=== PATIENT | female | born 1995 | race Caucasian/White ===

== ENCOUNTER 2020-05-15 13:43 | Outpatient (REF) | payer MEDICAID, SELFPAY | END 2020-05-15 13:44 | disposition home or self-care (01) | LOC: HO.LAB 13:43 | PROVIDERS: Visit Provider Internal Medicine | DX: Z20.828 Contact with and (suspected) exposure to other viral communicable diseases (principal) | CPT/HCPCS: 36415; 87635 ==

== ENCOUNTER 2020-05-29 12:17 | Outpatient (REF) | payer MEDICAID, SELFPAY | END 2020-05-29 12:18 | disposition home or self-care (01) | LOC: HO.LAB 12:17 | PROVIDERS: Visit Provider Internal Medicine | DX: Z20.828 Contact with and (suspected) exposure to other viral communicable diseases (principal) | CPT/HCPCS: 87635 ==

== ENCOUNTER 2020-06-24 06:11 | Emergency (ER) | payer MEDICAID, SELFPAY ==
[2020-06-24 06:22] VITALS: BP 114/96; PULSE 89; RESP 20; TEMP 37; O2SAT 99; BMI 27.3
--- NOTE | 2020-06-24 06:27 | ECG_ITS ---
Test Reason : CHEST PAIN Blood Pressure : / mmHG Vent. Rate : 067 BPM Atrial Rate : 067 BPM P-R Int : 114 ms QRS Dur : 088 ms QT Int : 400 ms P-R-T Axes : 032 056 037 degrees QTc Int : 422 ms Normal sinus rhythm Normal ECG When compared with ECG of 02-DEC-2018 13:58, No significant change was found Referred By: Cecilia Moore Electronically Signed By:BONNY COTTO MD
[2020-06-24 06:41] LABS: MANUAL DIFF FLAG NO
[2020-06-24 06:42] LABS: Basophils Absolute Auto 0.1 X10*3/uL (0.0-0.2); Basophils Percent Auto 0.3 % (0-2); Eosinophils Percent Auto 0.1 % (0-4); Hematocrit 40.3 % (37-47); Hemoglobin 13.1 g/dl (12.0-16.0); Imm Gran Abs Auto 0.04 X10*3/uL (0.00-0.03); Imm Gran Pct Auto 0.3 % (0.0-0.4); Lymphocytes Absolute Auto 1.2 X10*3/uL (1.2-4.9); Lymphocytes Percent Auto 8.2 % (20-40); Mean Corpuscular HGB Conc 32.5 g/dl (31.0-35.0); Mean Corpuscular Hemoglobin 27.8 pg (27.0-33.0); Mean Corpuscular Volume 85.6 fL (80-98); Mean Platelet Volume 10.7 fL (9.4-12.3); Monocytes Absolute Auto 0.3 X10*3/uL (0.1-1.2); Monocytes Percent Auto 1.7 % (2-11); Neutrophils Absolute Auto 12.8 X10*3/uL (2.0-8.3); Neutrophils Percent Auto 89.4 % (45-73); Platelet Count 256 X10*3/uL (160-400); Red Blood Count 4.71 X10*6/uL (4.20-5.50); Red Cell Distribution Width 12.7 % (11.0-16.0); White Blood Count 14.3 X10*3/uL (4.8-10.8)
[2020-06-24] MEDS: 0.9 % Sodium Chloride 1,000 ML 999 ML IVCONT (06:47)
[2020-06-24] MEDS: ondansetron HCL 4 MG/2 ML VIAL IVPUSH ×2 (06:47→10:59)
--- NOTE | 2020-06-24 07:00 | XR_ITS ---
EXAMINATION: XR CHEST CLINICAL INFORMATION: Chest pain COMPARISON: Chest x-ray 06/30/2014 TECHNIQUE: Frontal view of the chest was obtained. FINDINGS: Cardiac silhouette is normal in size. Lungs are well aerated. There is no lobar consolidation. No pleural effusion or pneumothorax. No gross osseous abnormality. XR/XR chest 1V IMPRESSION: Stable examination demonstrating no acute pulmonary pathology.
--- NOTE | 2020-06-24 07:05 | ED_ITS ---
HPI - Chest Pain General Chief Complaint: Chest Pain Stated Complaint: Chest pain Time Seen by Provider: 06/24/20 06:56 Source: patient Mode of arrival: ambulatory Limitations: no limitations History of Present Illness HPI narrative: This is a 24-year-old female presented with chest pain started at 02:00 in the morning pain woke the patient up from sleep, patient described pain as sharp pain in her mid chest to her upper back, pain is constant since 02:00, no radiation of the pain, nothing makes the pain worse or relieve the pain, pain is associated with nausea and vomiting. Patient last meal was before went to bed last night greasy chicken sandwich. Related Data Previous Rx's Medication Instructions Recorded omeprazole magnesium [Prilosec OTC] 20 mg PO BID #30 tab 06/24/20 Allergies Allergy/AdvReac Type Severity Reaction Status Date / Time No Known Allergies Allergy Verified 06/24/20 06:21 Review of Systems Review of Systems: All other systems are reviewed and are negative Constitutional: Reports as per HPI and Reports no additional constitutional complaints Eyes: Reports as per HPI and Reports no additional eye complaints Reports system reviewed and no additional complaints, except as documented Cardiovascular: Reports as per HPI and Reports no additional cardiovascular complaints Respiratory: Reports as per HPI and Reports no additional respiratory complaints Gastrointestinal: Reports as per HPI and Reports no additional gastrointestinal complaints Genitourinary: Reports no additional female genitourinary complaints Musculoskeletal: Reports no additional musculoskeletal complaints Skin/Breast: Reports system reviewed and no additional complaints, except as docu Psychiatric: Reports no additional psychiatric complaints Endocrine: Reports no additional endocrine complaints Hematologic/Lymphatic: Reports no additional hematologic/lymphatic complaints Allergic/Immunologic: Reports no additional allergic/immunologic complaints Reports system reviewed and no additional complaints, except as documented and Reports Abnormal speech present [facility] Past Medical History Medical History COVID-19 Social History Social History Alcohol intake: never Smoked in Last 30 Days: No Use of substances other than those prescribed or required for medical reasons: No Advance Directives: No Advance Directives Information Provided: No Physical Exam Vital Signs: Vital Signs: Last Vital Signs Temp 98.6 F 06/24/20 06:22 Pulse 89 06/24/20 06:22 Resp 20 06/24/20 06:22 BP 114/96 H 06/24/20 06:22 Pulse Ox 99 06/24/20 06:22 Body Mass Index 27.3 Vital signs have been reviewed as normal and appeared to be correct. Blood pressure normal. Heart rate normal. Respiration rate normal. Temperature normal. Oxygen saturation normal. Appearance: Alert. Oriented X3. No acute distress. Head: Normal external exam. Normocephalic. Atraumatic. No Macias signs noted. No raccoon eyes noted Eyes: PERRLA. EOMI. Conjunctiva and sclera normal. Eyelids normal. ENT: EAC normal. TM's Normal. Pharynx normal. Uvula midline. Moist mucous membranes. No trismus noted. No drooling noted. No muffled voice noted. Neck: Normal inspection. Neck supple. FROM. No adenopathy. Thyroid Normal. No meningeal signs. No neck mass noted. CVS: Normal heart rate and rhythm. Heart sound normal. No murmurs noted. Pulses normal throughout. Respiratory: No respiratory distress. Painless inspiration. Breath sounds normal. No wheezes/rales/rhonchi noted. Chest nontender. No accessory muscle usage noted or decreased air movement noted. Abdomen: Soft, right upper quadrant tenderness with no rebound or guarding, positive Rodríguez's sign.. Bowel sounds normal in all 4 quadrants. No distention noted. No organomegaly noted. No visible injury noted. Back: No CVA tenderness. Full range of motion noted. Skin: Skin warm and dry. Normal skin color. Normal skin turgor. No rashes/lesions/lacerations noted. Extremities: No lower extremity edema. Extremities exhibit normal range of motion. Extremities nontender. Neuro: Oriented X 3. No motor deficit. No sensory deficit. Reflexes normal. Course Course Course Narrative: this is 24 yr old female presented with upper abd/ lower chest pain since 2 am, exam is consistent with GB problem, will consider labs and ultrasound. MDM - Chest Pain MDM Narrative Medical decision making narrative: Assessment and plan. 24-year-old female presented with nausea vomiting upper abdominal pain, patient ate greasy chicken which she has last night then symptoms started shortly after that, patient has unremarkable gallbladder ultrasound, unremarkable chest x-ray, Labs are significant for leukocytosis and elevation of LFTs. Patient was reassessed and feeling better now, patient stop nausea and vomiting, able to tolerate p.o. intake in the emergency department without vomiting. Lab Data Attestation: I reviewed the patient's lab results. Result diagrams: 06/24/20 06:36 06/24/20 06:36 Labs: Lab Results 06/24/20 06/24/20 06/24/20 Range/Units 06:36 06:36 06:36 WBC 14.3 H (4.8-10.8) X10*3/uL RBC 4.71 (4.20-5.50) X10*6/uL Hgb 13.1 (12.0-16.0) g/dl Hct 40.3 (37-47) % MCV 85.6 (80-98) fL MCH 27.8 (27.0-33.0) pg MCHC 32.5 (31.0-35.0) g/dl RDW 12.7 (11.0-16.0) % Plt Count 256 (160-400) X10*3/uL MPV 10.7 (9.4-12.3) fL Immature Gran % (Auto) 0.3 (0.0-0.4) % Neut % (Auto) 89.4 H (45-73) % Lymph % (Auto) 8.2 L (20-40) % [place] % (Auto) 1.7 L (2-11) % Eos % (Auto) 0.1 (0-4) % Baso % (Auto) 0.3 (0-2) % Lymph # (Auto) 1.2 (1.2-4.9) X10*3/uL [place] # (Auto) 0.3 (0.1-1.2) X10*3/uL Eos # (Auto) 0.0 (0.0-0.4) X10*3/uL Baso # (Auto) 0.1 (0.0-0.2) X10*3/uL Abs Immat Gran (auto) 0.04 H (0.00-0.03) X10*3/uL Absolute Neuts (auto) 12.8 H (2.0-8.3) X10*3/uL Absolute Nucleated RBC 0.000 (0.0-0.012) X10*3/uL Nucleated RBC % (auto) 0.0 (0.0-0.2) /100WBC D-Dimer < 200 NG/ML Hold Blue Top SEE NOTE Sodium 137 (135-145) mmol/L Potassium 4.1 (3.3-5.1) mmol/l Chloride 103 (96-108) mmol/L Carbon Dioxide 25 (22-29) mmol/L Anion Gap 13 (12-20) BUN 11 (9-16) mg/dL Creatinine 0.86 (0.5-1.4) mg/dL Estim Creat Clear Calc 82.5 Estimated GFR > 60 Random Glucose 121 H (60-115) mg/dL Calcium 9.0 (8.4-10.2) mg/dL Total Bilirubin 1.1 H (0.0-1.0) mg/dL Direct Bilirubin 0.6 H (0.0-0.5) mg/dL AST 64 H (5-31) U/L ALT 49 H (0-31) U/L Alkaline Phosphatase 83 (39-117) U/L Troponin I High Sens (<3.5-17.0) ng/L Total Protein 7.6 (6.5-8.0) g/dL Albumin 4.5 (3.5-5.0) g/dL Lipase 39 (8-78) U/L 06/24/20 06/24/20 Range/Units 06:36 06:36 WBC (4.8-10.8) X10*3/uL RBC (4.20-5.50) X10*6/uL Hgb (12.0-16.0) g/dl Hct (37-47) % MCV (80-98) fL MCH (27.0-33.0) pg MCHC (31.0-35.0) g/dl RDW (11.0-16.0) % Plt Count (160-400) X10*3/uL MPV (9.4-12.3) fL Immature Gran % (Auto) (0.0-0.4) % Neut % (Auto) (45-73) % Lymph % (Auto) (20-40) % [place] % (Auto) (2-11) % Eos % (Auto) (0-4) % Baso % (Auto) (0-2) % Lymph # (Auto) (1.2-4.9) X10*3/uL [place] # (Auto) (0.1-1.2) X10*3/uL Eos # (Auto) (0.0-0.4) X10*3/uL Baso # (Auto) (0.0-0.2) X10*3/uL Abs Immat Gran (auto) (0.00-0.03) X10*3/uL Absolute Neuts (auto) (2.0-8.3) X10*3/uL Absolute Nucleated RBC (0.0-0.012) X10*3/uL Nucleated RBC % (auto) (0.0-0.2) /100WBC D-Dimer NG/ML Hold Blue Top Sodium (135-145) mmol/L Potassium (3.3-5.1) mmol/l Chloride (96-108) mmol/L Carbon Dioxide (22-29) mmol/L Anion Gap (12-20) BUN (9-16) mg/dL Creatinine (0.5-1.4) mg/dL Estim Creat Clear Calc Estimated GFR Random Glucose (60-115) mg/dL Calcium (8.4-10.2) mg/dL Total Bilirubin Cancelled (0.0-1.0) mg/dL Direct Bilirubin Cancelled (0.0-0.5) mg/dL AST Cancelled (5-31) U/L ALT Cancelled (0-31) U/L Alkaline Phosphatase Cancelled (39-117) U/L Troponin I High Sens < 3.5 (<3.5-17.0) ng/L Total Protein Cancelled (6.5-8.0) g/dL Albumin Cancelled (3.5-5.0) g/dL Lipase Cancelled (8-78) U/L Imaging Data Chest x-ray: Radiologist's impression: No acute intrathoracic pathology. US - abdomen: Radiologist's impression: No acute gallbladder pathology. ECG Data ECG #1: Interpretation: Normal sinus rhythm at 67 beats per minute, normal axis, normal interval, no ST-T changes. Discharge Plan Discharge Clinical Impression: Abdominal pain, Gastritis Patient Disposition: Home, Self-Care Instructions: Gastritis (ED) Prescriptions: New omeprazole magnesium [Prilosec OTC] 20 mg tablet,delayed release (DR/EC) 20 mg PO BID Qty: 30 RF: 0 Referrals: Physician,Unknown [Primary Care Provider] - 2 days Shaheen Cox MD [Physician] - 2 days
[2020-06-24 07:09] LABS: Troponin-I High Sensitivity < 3.5 ng/L (<3.5-17.0)
[2020-06-24 07:10] LABS: Alanine Aminotransferase 49 U/L (0-31); Albumin Level 4.5 g/dL (3.5-5.0); Alkaline Phosphatase 83 U/L (39-117); Anion Gap 13 (12-20); Aspartate Amino Transferase 64 U/L (5-31); Bilirubin Total 1.1 mg/dL (0.0-1.0); Blood Urea Nitrogen 11 mg/dL (9-16); Carbon Dioxide 25 mmol/L (22-29); Chloride 103 mmol/L (96-108); Creatinine Clr Calc Pharmacy 82.5; Estimated Glomerular Filt Rate > 60; Glucose Random 121 mg/dL (60-115); Lipase 39 U/L (8-78); Potassium 4.1 mmol/l (3.3-5.1); Sodium 137 mmol/L (135-145); Total Protein 7.6 g/dL (6.5-8.0)
[2020-06-24 07:31] LABS: D Dimer < 200 NG/ML
[2020-06-24 07:35] LABS: Bilirubin Direct 0.6 mg/dL (0.0-0.5)
--- NOTE | 2020-06-24 07:45 | US_ITS ---
EXAMINATION: US ABDOMEN LIMITED CLINICAL INFORMATION: 24-year-old female patient with upper abdominal pain.. COMPARISON: None TECHNIQUE: Real-time imaging of the right upper quadrant abdominal viscera. FINDINGS: PANCREAS: Not examined. LIVER: Not examined. GALLBLADDER: Contracted, without evidence of stones, sludge, polyps, wall thickening, or pericholecystic fluid. COMMON BILE DUCT: Normal in caliber measuring 0.2 cm in diameter. RIGHT KIDNEY: Not examined. FREE FLUID: None. US/US abdomen limited IMPRESSION: Contracted gallbladder. No stones.
[2020-06-24 10:41] LABS: Glucose Urine UA NEG (NEG); Leukocyte Esterase Urine NEG (NEG); Nitrite Urine NEG (NEG); PH 6.5 (5.0-8.0); Specific Gravity - Urine 1.025 (1.005-1.025); Urine Blood NEG (NEG); Urine Ketones 15 MG/DL (NEG); Urine Protein NEG (NEG-TRACE)
[2020-06-24 10:43] LABS: Appearance Urine CLEAR; Color Urine YELLOW; UACC Culture Trigger NO; UPreg QC Valid YES; Urine Pregnancy NEGATIVE (NEGATIVE)
[2020-06-24] MEDS: Acetaminophen 325 MG TABLET 650 MG PO (10:59)
== END 2020-06-24 11:02 | disposition home or self-care (01) ==
PROVIDERS: Emergency Provider Emergency Medicine
DX: K29.70 Gastritis, unspecified, without bleeding (principal); R07.9 Chest pain, unspecified; R10.9 Unspecified abdominal pain; Z79.899 Other long term (current) drug therapy
CPT/HCPCS: 36415; 71045; 76705; 80053; 80076; 81003; 81025; 82248; 83690; 84484; 85025; 85379; 93005; 96361; 96374; 96375; 99284; J2405

== ENCOUNTER 2020-11-02 11:29 | Outpatient (REF) | payer MEDICAID, SELFPAY ==
--- NOTE | ~2020-11-02 | XR_ITS ---
EXAMINATION: XR ANKLE, RIGHT CLINICAL INFORMATION: Pain right ankle and foot. COMPARISON: None TECHNIQUE: AP, lateral, and mortise views of the right ankle. FINDINGS: There is no fracture or dislocation or destructive process. The subtalar joint is unremarkable. The retrocalcaneal recess is preserved. No tibiotalar joint narrowing. No visible osteochondral lesion talar dome. Base fifth metatarsal intact. XR/XR ankle RT min 3V IMPRESSION: No fracture or, destructive process, or arthropathy.
== END 2020-11-02 11:30 | disposition home or self-care (01) ==
LOC: HO.XRAY 11:29
PROVIDERS: PCP Family Medicine; Visit Provider General Practice
DX: M25.571 Pain in right ankle and joints of right foot (principal)
CPT/HCPCS: 73610

== ENCOUNTER 2020-11-21 13:49 | Emergency (ER) | payer MEDICAID, SELFPAY ==
[2020-11-21 14:06] VITALS: BP 116/79; PULSE 111; RESP 16; TEMP 36.6; O2SAT 99; BMI 31.2
--- NOTE | 2020-11-21 15:10 | ED.GENADULT ---
HPI - General Adult General Chief complaint: General Medical <Shady John NP - Last Filed: 11/21/20 17:15> Stated complaint: BODY ACHES QUEST REACTION TO COVID VACCINE <Shady John NP - Last Filed: 11/21/20 17:15> Time Seen by Provider: 11/21/20 15:10 <Shady John NP - Last Filed: 11/21/20 17:15> Source: patient <Shady John NP - Last Filed: 11/21/20 17:15> Mode of arrival: ambulatory <Shady John NP - Last Filed: 11/21/20 17:15> Limitations: no limitations <Shady John NP - Last Filed: 11/21/20 17:15> History of Present Illness HPI narrative: States she got her Perfecto and Perfecto COVID vaccination yesterday Today she had body aches all over starting to feel better Also had mild chills She denies any chest pain, shortness of breath, lower extremity pain or swelling States she became more concerned when she saw the national news of Perfecto Perfecto vaccination being on hold for increased risk for blood clots. She denies any personal or familial history of blood clots otherwise has been doing well <Shady John NP - Last Filed: 11/21/20 17:15> Related Data Home medications: Previous Rx's Medication Instructions Recorded omeprazole magnesium [Prilosec OTC] 20 mg PO BID #30 tab 06/24/20 <Shady John NP - Last Filed: 11/21/20 17:15> Allergies/adverse reactions: Allergies Allergy/AdvReac Type Severity Reaction Status Date / Time No Known Allergies Allergy Verified 06/24/20 06:21 <Shady John NP - Last Filed: 11/21/20 17:15> Review of Systems Review of Systems: Constitutional: No Weight loss, No Fever, + Chills, No Night Sweats, No Fatigue, No Malaise ENT/Mouth: No Hearing loss, No Ear Pain, No Nasal Congestion, No Sinus Pain, No Hoarseness, No sore throat, No Rhinorrhea, No Swallowing Difficulty Eyes: No Eye Pain, No Swelling, No Redness, No Foreign Body, No Discharge, No Vision Changes Cardiovascular: No Chest Pain, No SOB, No Dyspnea on Exertion, No Orthopnea, No Edema, No Palpitations Respiratory: No Cough, No Sputum, No Wheezing, No Smoke Exposure, No Dyspnea Gastrointestinal: No Nausea, No Vomiting, No Diarrhea, No Constipation, No abdominal Pain, No Hematochezia, No Melena Genitourinary: no irregular bleeding, No Dysuria, No Urinary Frequency, No Hematuria, No Urinary Incontinence, No Urgency, No Flank Pain, No Urinary Flow Changes, No Hesitancy Musculoskeletal: No joint pain, No Joint Swelling, positive myalgias Skin: No Skin Lesions, No rash Neuro: No Weakness, No Numbness, No Paresthesias, No Loss of Consciousness, No Dizziness, No Headache Psych: No Social Issues Heme/Lymph: No Bruising, No Bleeding,No Lymphadenopathy Endocrine: No Polyuria, No Polydipsia, No Temperature Intolerance <Shady John NP - Last Filed: 11/21/20 17:15> Yes all other systems are reviewed and are negative <Shady John NP - Last Filed: 11/21/20 17:15> [facility] Past Medical History Medical History: Medical History COVID-19 <Shady John NP - Last Filed: 11/21/20 17:15> Social History Social History: Social History Alcohol intake: never Advance Directives: No Advance Directives Information Provided: Yes <Shady John NP - Last Filed: 11/21/20 17:15> Physical Exam Vital Signs: Vital Signs: Last Vital Signs Temp 98.7 F 11/21/20 17:09 Pulse 85 11/21/20 17:09 Resp 14 11/21/20 17:09 BP 115/70 11/21/20 17:09 Pulse Ox 99 11/21/20 17:09 Body Mass Index 31.2 Reviewed <Shady John NP - Last Filed: 11/21/20 17:15> Vital Signs: Last Vital Signs Temp 98.7 F 11/21/20 17:09 Pulse 85 11/21/20 17:09 Resp 14 11/21/20 17:09 BP 115/70 11/21/20 17:09 Pulse Ox 99 11/21/20 17:09 Body Mass Index 31.2 <Kota Hills MD - Last Filed: 11/30/20 10:57> Const: General: cooperative and healthy appearing; No acute distress or intoxicated appearing <Shady John NP - Last Filed: 11/21/20 17:15> Nutritional Appearance: average body habitus <Shadyguido John NP - Last Filed: 11/21/20 17:15> Orientation/consciousness: patient oriented x3 <[facility] MARISA John - Last Filed: 11/21/20 17:15> HENMT: Head: Yes normal to inspection <[facility] MARISA John - Last Filed: 11/21/20 17:15> Ears: hearing grossly normal bilaterally <[facility] MARISA John - Last Filed: 11/21/20 17:15> Eyes: General: appearance normal, both eyes and all related structures <Shadyguido John NP - Last Filed: 11/21/20 17:15> Visual Quintero: normal visual quintero by confrontation <Shadyguido John NP - Last Filed: 11/21/20 17:15> Neck: Neck: Yes normal visual inspection, No positive Brudzinski's sign, No positive Kernig's sign and No tender <Shadyguido John NP - Last Filed: 11/21/20 17:15> Thyroid: Thyroid normal <[facility] MARISA John - Last Filed: 11/21/20 17:15> Chest: Chest palpation & inspection: normal inspection of the chest <Shady John NP - Last Filed: 11/21/20 17:15> Resp: Effort & Inspection: normal respiratory effort <[facility] MARISA John - Last Filed: 11/21/20 17:15> Auscultation: clear to auscultation bilaterally <Shady MARISA John - Last Filed: 11/21/20 17:15> Cardio: Jugular venous distension: no JVD <[facility] MARISA John - Last Filed: 11/21/20 17:15> Rhythm: regular rhythm <[facility] MARISA oJhn - Last Filed: 11/21/20 17:15> Heart sounds: S1 normal heart sound present and S2 normal heart sound present <[facility] MARISA John - Last Filed: 11/21/20 17:15> GI: Inspection: Yes normal to inspection <Shady Alvaro PROJECT MANAGEMENT CONSULTANT - Last Filed: 11/21/20 17:15> Palpation (GI): Soft to palpation <Shady John PROJECT MANAGEMENT CONSULTANT - Last Filed: 11/21/20 17:15> Percussion: Yes normal to percussion <[facility] John PROJECT MANAGEMENT CONSULTANT - Last Filed: 11/21/20 17:15> Auscultation: normal bowel sounds <Shady John, PROJECT MANAGEMENT CONSULTANT - Last Filed: 11/21/20 17:15> : General: Yes no CVA tenderness <[facility] John PROJECT MANAGEMENT CONSULTANT - Last Filed: 11/21/20 17:15> Back/Spine/Pelvis: Back: no CVA tenderness <Shady JohnMARISA - Last Filed: 11/21/20 17:15> Skin: General skin exam: no rashes or lesions noted <[facility] JohnMARISA chen - Last Filed: 11/21/20 17:15> Neuro: General: patient oriented x3 <Shady De GuzmanMARISA chen - Last Filed: 11/21/20 17:15> Extrem: Other: Negative Homans <Shady JohnMARISA chen - Last Filed: 11/21/20 17:15> General: Yes normal to inspection <Shady JohnMARISA - Last Filed: 11/21/20 17:15> Course Course Course Narrative: I have reviewed the chart <Kota Hills MD - Last Filed: 11/30/20 10:57> Reevaluation(s) Reevaluation #1: Mild side effects from COVID Perfecto and Perfecto vaccination no symptoms to suggest DVT/PE. VSs, NAD, no complaint of chest pain, shortness of breath, lower extremity pain or swelling. Homans negative. VSS, NAD. COVID test negative. Will discharge home with precaution return follow-up instructions. She feels comfortable with plan. Stable for discharge. <Shady De GuzmanMARISA chen - Last Filed: 11/21/20 17:15> Medical Decision Making Lab Data Labs: Lab Results 11/21/20 Range/Units 15:18 Coronavirus (PCR) NEGATIVE (Negative) Influenza Type A (PCR) NEGATIVE (Negative) Influenza Type B (PCR) NEGATIVE (Negative) RSV RNA Qual (PCR) NEGATIVE (Negative) <Shady John NP - Last Filed: 11/21/20 17:15> Lab Results 11/21/20 Range/Units 15:18 Coronavirus (PCR) NEGATIVE (Negative) Influenza Type A (PCR) NEGATIVE (Negative) Influenza Type B (PCR) NEGATIVE (Negative) RSV RNA Qual (PCR) NEGATIVE (Negative) <Kota Hills MD - Last Filed: 11/30/20 10:57> Discharge Plan Discharge Clinical Impression: Vaccination side effects <Shady John NP - Last Filed: 11/21/20 17:15> Patient Disposition: Home, Self-Care <Shady John NP - Last Filed: 11/21/20 17:15> Additional Instructions: Return if any chest pain, shortness of breath, lower extremity pain or swelling Your COVID/RSV/flu test was negative today Thank you <Shady John NP - Last Filed: 11/21/20 17:15> Prescriptions: No Action omeprazole magnesium [Prilosec OTC] 20 mg tablet,delayed release (DR/EC) 20 mg PO BID Qty: 30 RF: 0 <Shady John NP - Last Filed: 11/21/20 17:15> Referrals: [facility] [Primary Care Provider] - 2 days <Shady John NP - Last Filed: 11/21/20 17:15> Stand Alone Forms: Work/School Release <Shady John NP - Last Filed: 11/21/20 17:15> Interventions: ED Discharge Assessment Last Done: 11/21/20 17:48 <Shady John NP - Last Filed: 11/21/20 17:15> Discharge Date/Time: 11/21/20 17:50 <Shady John NP - Last Filed: 11/21/20 17:15>
[2020-11-21 16:07] LABS: Influenza A PCR NEGATIVE (Negative); Influenza B PCR NEGATIVE (Negative); Resp Syncy Virus RNA Qual PCR NEGATIVE (Negative); SARS COV2 PCR INHOUSE NEGATIVE (Negative)
[2020-11-21 17:09] VITALS: BP 115/70; PULSE 85; RESP 14; TEMP 37.1; O2SAT 99
== END 2020-11-21 17:50 | disposition home or self-care (01) ==
PROVIDERS: Nurse Practitioner Primary Care; Emergency Provider Emergency Medicine
DX: R68.83 Chills (without fever) (principal); M79.10 Myalgia, unspecified site; T50.B95A Adverse effect of other viral vaccines, initial encounter; Y92.019 Unspecified place in single-family (private) house as the place of occurrence of the external cause; Z20.822 Contact with and (suspected) exposure to COVID-19
CPT/HCPCS: 0241U; 36415; 99283

== ENCOUNTER 2022-08-18 13:07 | Emergency (ER) | payer MEDICAID, SELFPAY ==
[2022-08-18 13:20] VITALS: BP 116/72; PULSE 88; RESP 16; TEMP 36.6; O2SAT 98; BMI 31.6
--- NOTE | 2022-08-18 13:21 | ED_ITS ---
HPI - URI/Sore Throat General Chief Complaint: Upper Respiratory Symptoms <NELI Severino Last Filed: 08/18/22 13:23> Stated Complaint: quest strep throat <NELI Severino Last Filed: 08/18/22 13:23> Time Seen by Provider: 08/18/22 16:52 <NELI Severino Last Filed: 08/18/22 13:23> Source: patient <NELI Cedeno Last Filed: 08/18/22 18:48> Mode of arrival: ambulatory <NELI Cedeno Last Filed: 08/18/22 18:48> History of Present Illness HPI Narrative: 26-year-old female with no significant past medical history presenting to the ED complaining of subjective fever, chills, nasal congestion/ rhinorrhea and sore throat x2 days. Reports painful swelling. Denies ear pain, cough, SOB, CP, recent travel, sick contacts, difficulty swallowing, abdominal pain <NELI Cedeno Last Filed: 08/18/22 18:48> MD elicited complaint: sore throat, rhinorrhea and nasal congestion <NELI Cedeno Last Filed: 08/18/22 18:48> Onset (ago): day(s) <NELI Cedeno Last Filed: 08/18/22 18:48> Related Data Home Medications: Previous Rx's Medication Instructions Recorded omeprazole magnesium 20 mg 20 mg PO BID #30 tabs 06/24/20 tablet,delayed release (Prilosec OTC) amoxicillin 875 mg-potassium 1 tab PO BID 7 days #14 tabs 08/18/22 clavulanate 125 mg tablet <NELI Severino Last Filed: 08/18/22 13:23> Allergies/Adverse Reactions: Allergies Allergy/AdvReac Type Severity Reaction Status Date / Time No Known Allergies Allergy Verified 08/18/22 13:22 <NELI Severino Last Filed: 08/18/22 13:23> Review of Systems Review of Systems: Constitutional: +Subj Fever, No Chills ENT/Mouth: No Ear Pain, + Nasal Congestion, No Sinus Pain, No Hoarseness, + sore throat, + Rhinorrhea, No Swallowing Difficulty Cardiovascular: No Chest Pain, No SOB Respiratory: No Cough, No Sputum, No Wheezing Gastrointestinal: No Nausea, No Vomiting, No Diarrhea, No Constipation, No Abdominal pain Genitourinary: No Dysuria, No Urinary Frequency, No Hematuria, No Flank Pain Musculoskeletal: No joint pain, No Myalgias, No Joint Swelling Skin: No Skin Lesions, No rash Neuro: No Weakness, <NELI Cedeno - Last Filed: 08/18/22 18:48> Yes all other systems are reviewed and are negative <NELI Cedeno - Last Filed: 08/18/22 18:48> Constitutional: Constitutional: Reports as per HPI <NELI Cedeno - Last Filed: 08/18/22 18:48> [facility] Past Medical History Attestation statement: The following information was validated with the patient. <NELI Cedeno - Last Filed: 08/18/22 18:48> Medical History: Medical History COVID-19 <NELI Severino - Last Filed: 08/18/22 13:23> Social History Social History: Social History Alcohol intake: never Advance Directives: No Advance Directives Information Provided: Yes <NELI Severino - Last Filed: 08/18/22 13:23> Physical Exam Vital Signs: Vital Signs: Last Vital Signs Temp 97.2 F 08/18/22 16:45 Pulse 87 08/18/22 16:45 Resp 17 08/18/22 16:45 BP 114/72 08/18/22 16:45 Pulse Ox 100 08/18/22 16:45 O2 Del Method 08/18/22 16:45 BMI result Body Mass Index 31.6 <NELI Severino - Last Filed: 08/18/22 13:23> Vital Signs: Last Vital Signs Temp 97.2 F 08/18/22 16:45 Pulse 87 08/18/22 16:45 Resp 17 08/18/22 16:45 BP 114/72 08/18/22 16:45 Pulse Ox 100 08/18/22 16:45 O2 Del Method 08/18/22 16:45 BMI result Body Mass Index 31.6 <NELI Cedeno Last Filed: 08/18/22 18:48> Const: General: cooperative, healthy appearing, comfortable and no acute distress <NELI Cedeno Last Filed: 08/18/22 18:48> Orientation/consciousness: patient oriented x3 <NELI Cedeno Last Filed: 08/18/22 18:48> Limitations: no limitations <NELI Cedeno Last Filed: 08/18/22 18:48> HEENT: Head: Yes normal to inspection and Yes atraumatic <NELI Cedeno Last Filed: 08/18/22 18:48> Ears: hearing grossly normal bilaterally, external ears normal, TM's normal bilaterally and mastoids normal <NELI Cedeno - Last Filed: 08/18/22 18:48> General nose exam: Normal external nose present <NELI Cedeno - Last Filed: 08/18/22 18:48> Face and sinus: Yes normal facial exam <NELI Cedeno - Last Filed: 08/18/22 18:48> Throat: Yes uvula midline, Yes abnormal tonsil (+ bilateral tonsillar swelling and exudates) and No peritonsillar mass <NELI Cedeno - Last Filed: 08/18/22 18:48> Eyes: General: appearance normal, both eyes and all related structures <NELI Cedeno Last Filed: 08/18/22 18:48> EOM: EOMs intact bilaterally <NELI Cedeno Last Filed: 08/18/22 18:48> Neck: Neck: Yes normal visual inspection, Yes no lymphadenopathy, Yes no meningeal signs, Yes supple and No anterior neck swelling <NELI Cedeno - Last Filed: 08/18/22 18:48> Resp: Effort & Inspection: normal respiratory effort, not labored, no respiratory distress and no stridor <NELI Cedeno Last Filed: 08/18/22 18:48> Auscultation: clear to auscultation bilaterally, no crackles, no rales and no rhonchi <NELI Cedeno Last Filed: 08/18/22 18:48> Cardio: Rate: regular rate <NELI Cedeno - Last Filed: 08/18/22 18:48> Heart sounds: S1 normal heart sound present and S2 normal heart sound present <NELI Cedeno - Last Filed: 08/18/22 18:48> GI: Inspection: Yes normal to inspection <NELI Cedeno - Last Filed: 08/18/22 18:48> Palpation (GI): Soft to palpation, nontender, no guarding, not rigid and No hepatosplenomegaly present <NELI Cedeno - Last Filed: 08/18/22 18:48> Skin: Rashes: no rashes <NELI Cedeno - Last Filed: 08/18/22 18:48> Wounds: no wounds <NELI Cedeno - Last Filed: 08/18/22 18:48> Neuro: General: patient oriented x3, tone normal and no meningeal signs <NELI Cedeno - Last Filed: 08/18/22 18:48> Gait exam (Neuro): Normal gait present <NELI Cedeno - Last Filed: 08/18/22 18:48> Extrem: General: Yes normal to inspection <NELI Cedeno Last Filed: 08/18/22 18:48> Course Course Course Narrative: E-13:23pm 26yoF presenting to the ED c c/o Chills, sub fevers, body aches, sore throat and white spots on tonsil's since Friday worse today. Denies recent travel or sick contacts. Denies any measured fevers, nausea/vomiting, cough, sputum production, abdominal pain, diarrhea, rashes or any other symptoms complaints or concerns at this time. Requesting for strep swab. Plan: Will obtain COVID/RSV/flu and rapid strep. Patient will be sent back to the waiting room to be evaluated in [facility]. <NELI Severino - Last Filed: 08/18/22 13:23> E-13:23pm 26yoF presenting to the ED c c/o Chills, sub fevers, body aches, sore throat and white spots on tonsil's since Friday worse today. Denies recent travel or sick contacts. Denies any measured fevers, nausea/vomiting, cough, sputum production, abdominal pain, diarrhea, rashes or any other symptoms complaints or concerns at this time. Requesting for strep swab. Plan: Will obtain COVID/RSV/flu and rapid strep. Patient will be sent back to the waiting room to [place] [facility] [facility] [id number] mono spot negative Monospot negative > will discharge patient with Augmentin as clinically has strep pharyngitis and viral studies including Monospot are negative Results discussed with patient including worrisome signs and symptoms and strict return precautions, and when to return to the emergency department. They verbalized understanding and feel safe for discharge at this time. <NELI Cedeno - Last Filed: 08/18/22 18:48> Medications Administered Discontinued Medications Generic Name Dose Route Start Last Admin Trade Name Freq PRN Reason Stop Dose Admin Lidocaine HCl 5 ml 08/18/22 17:42 08/18/22 17:58 Lidocaine Hcl Viscous 2 % 15 Ml Solution MUCOUS MEM 08/18/22 17:43 5 ml ONCE ONE Administration <NELI Severino - Last Filed: 08/18/22 13:23> Medications Administered Discontinued Medications Generic Name Dose Route Start Last Admin Trade Name Freq PRN Reason Stop Dose Admin Lidocaine HCl 5 ml 08/18/22 17:42 08/18/22 17:58 Lidocaine Hcl Viscous 2 % 15 Ml Solution MUCOUS MEM 08/18/22 17:43 5 ml ONCE ONE Administration <NELI Cedeno - Last Filed: 08/18/22 18:48> Medical Decision Making Medical Decision Making MDM Narrative: 26-year-old female with no significant past medical history presenting to the ED complaining of subjective fever, chills, nasal congestion/ rhinorrhea and sore throat x2 days. on exam vital signs stable, NAD, nontoxic appearing, bilateral tonsillar swelling with exudates noted, talking in complete sentences, no respiratory distress. Concern for strep pharyngitis vs viral syndrome vs mononucleosis. low suspicion for pneumonia plan: COVID-19/influenza/ RSV testing, rapid strep, Monospot <NELI Cedeno - Last Filed: 08/18/22 18:48> Differential Diagnosis Differential Diagnoses: The differential diagnosis associated with the presentation includes ( as above) <NELI Cedeno - Last Filed: 08/18/22 18:48> Lab Data MDM Lab Attestation statement: I reviewed the patient's lab results. <NELI Cedeno - Last Filed: 08/18/22 18:48> Labs: Lab Results 08/18/22 08/18/22 08/18/22 Range/Units 15:39 15:39 17:03 Monoscreen Negative (Negative) Influenza Type A (PCR) NEGATIVE (Negative) Influenza Type B (PCR) NEGATIVE (Negative) RSV RNA Qual (PCR) NEGATIVE (Negative) SARS-CoV-2 RNA (RT-PCR) NEGATIVE (Negative) S. pyogenes GrpA KAYLEE Negative (Negative) <NELI Severino Last Filed: 08/18/22 13:23> Lab Results 08/18/22 08/18/22 08/18/22 Range/Units 15:39 15:39 17:03 Monoscreen Negative (Negative) Influenza Type A (PCR) NEGATIVE (Negative) Influenza Type B (PCR) NEGATIVE (Negative) RSV RNA Qual (PCR) NEGATIVE (Negative) SARS-CoV-2 RNA (RT-PCR) NEGATIVE (Negative) S. pyogenes GrpA KAYLEE Negative (Negative) <NELI Cedeno Last Filed: 08/18/22 18:48> External Record Review External record reviewed: Other ( prior ED record) <NELI Cedeno - Last Filed: 08/18/22 18:48> Prescription Management I considered prescription management with: Pain Medication, Antiviral and Antibiotic <NELI Cedeno Last Filed: 08/18/22 18:48> Discharge Plan Discharge Clinical Impression: Pharyngitis <NELI Severino Last Filed: 08/18/22 13:23> Patient Disposition: Home, Self-Care <NELI Severino Last Filed: 08/18/22 13:23> Instructions: Pharyngitis (ED) <NELI Severino Last Filed: 08/18/22 13:23> Additional Instructions: you tested negative for COVID-19, the flu, RSV, and her rapid strep was negative. Her Monospot was also negative Clinically it appears you have strep throat, Augmentin is an antibiotic please take as prescribed. Gargle with warm salt water at home. Take Tylenol and Motrin. Avoid sharing drinks, wash her hands, cover her mouth Follow-up with her doctor If symptoms persist or worsen return to the emergency department <NELI Severino - Last Filed: 08/18/22 13:23> Prescriptions: New amoxicillin-pot clavulanate 875-125 mg tablet 1 tab PO BID 7 Days Qty: 14 0RF No Action omeprazole magnesium [Prilosec OTC] 20 mg tablet,delayed release (DR/EC) 20 mg PO BID Qty: 30 0RF <NELI Severino - Last Filed: 08/18/22 13:23> Referrals: [facility] [Primary Care Provider] - 5 days <NELI Severino - Last Filed: 08/18/22 13:23> Stand Alone Forms: Work/School Release <NELI Severino - Last Filed: 08/18/22 13:23> Interventions: ED Discharge Assessment Last Done: 08/18/22 18:02 <NELI Severino - Last Filed: 08/18/22 13:23> Discharge Date/Time: 08/18/22 18:02 <NELI Severino - Last Filed: 08/18/22 13:23> Print Language: Bangladeshi <NELI Severino - Last Filed: 08/18/22 13:23>
[2022-08-18 15:52] LABS: IDNOW Serial# 6674DD1D; Strep A Nucleic Acid Negative (Negative)
[2022-08-18 16:21] LABS: Influenza A PCR NEGATIVE (Negative); Influenza B PCR NEGATIVE (Negative); Resp Syncy Virus RNA Qual PCR NEGATIVE (Negative); SARS COV2 PCR INHOUSE NEGATIVE (Negative)
[2022-08-18 16:45] VITALS: BP 114/72; PULSE 87; RESP 17; TEMP 36.2; O2SAT 100
[2022-08-18 17:22] LABS: Monotest Negative (Negative)
[2022-08-18] MEDS: Lidocaine HCl Viscous 2 % 15 ML SOLUTION 5 ML MUCOUS MEM (17:58)
== END 2022-08-18 18:02 | disposition home or self-care (01) ==
PROVIDERS: Physician Assistant; Physician Assistant Medical; Emergency Provider Internal Medicine
DX: J02.9 Acute pharyngitis, unspecified (principal); M79.10 Myalgia, unspecified site; R50.9 Fever, unspecified; Z20.822 Contact with and (suspected) exposure to COVID-19; Z20.828 Contact with and (suspected) exposure to other viral communicable diseases; Z79.899 Other long term (current) drug therapy
CPT/HCPCS: 0241U; 36415; 86308; 87651; 99282

== ENCOUNTER 2024-01-26 | Outpatient (REF) | payer SELFPAY ==
[2024-02-02 20:33] LABS: HPV mRNA E6/E7 rflx Not Detected (Not Detected)
== END 2024-01-26 00:01 | disposition home or self-care (01) ==
LOC: HO.LNP
PROVIDERS: Visit Provider Advanced Practice Midwife
DX: Z12.4 Encounter for screening for malignant neoplasm of cervix (principal); Z11.51 Encounter for screening for human papillomavirus (HPV)
CPT/HCPCS: 87624; 88142

== ENCOUNTER 2024-03-05 15:17 | Outpatient (REF) | payer MEDICAID, SELFPAY ==
--- NOTE | ~2024-03-05 | XR_ITS ---
EXAMINATION: XR FOOT, RIGHT CLINICAL INFORMATION: Right foot pain and metatarsophalangeal joint swelling and bruising; limited range of motion. COMPARISON: Right ankle radiographs dated 11/02/2020. TECHNIQUE: AP, lateral, and oblique views of the right foot. FINDINGS: Bony alignment and mineralization are normal. A mildly displaced avulsion fragment is seen at the medial aspect of the base of the first proximal phalanx. The fracture line shows intra-articular extension. No dislocation is seen. There is no right ankle joint effusion. Boehler's angle is normal. There is no calcaneal spur. No soft tissue gas or foreign body is seen. XR/XR foot RT min 3V IMPRESSION: A mildly displaced fracture with intra-articular extension is seen of the base of the proximal phalanx of the right great toe.
== END 2024-03-05 15:18 | disposition home or self-care (01) ==
LOC: HO.HHCX 15:17
PROVIDERS: Visit Provider Nurse Practitioner Family
DX: M79.671 Pain in right foot (principal)
CPT/HCPCS: 73630

== ENCOUNTER 2024-03-29 13:28 | Outpatient (REF) | payer MEDICAID, SELFPAY ==
[2024-03-29 15:53] LABS: MANUAL DIFF FLAG NO
[2024-03-29 16:13] LABS: Estimated Average Glucose 97 mg/dL
[2024-03-29 16:22] LABS: Alanine Aminotransferase 18 U/L (0-31); Albumin Level 4.1 g/dL (3.5-5.0); Alkaline Phosphatase 73 U/L (39-117); Anion Gap 13 (12-20); Aspartate Amino Transferase 15 U/L (5-31); Bilirubin Total 0.5 mg/dL (0.0-1.0); Blood Urea Nitrogen 9 mg/dL (9-16); Calcium 9.4 mg/dL (8.4-10.2); Carbon Dioxide 24 mmol/L (22-29); Chloride 107 mmol/L (96-108); Cholesterol 127 mg/dL (<200); Estimated Glomerular Filt Rate > 60; Glucose Random 102 mg/dL (60-115); HDL Cholesterol 40 mg/dL (>40); LDL Cholesterol Calculated 70 mg/dL (<100); Potassium 3.7 mmol/L (3.3-5.1); Sodium 140 mmol/L (135-145); Total Protein 7.3 g/dL (6.5-8.0); Triglycerides 87 mg/dL (<150)
[2024-03-29 16:23] LABS: Basophils Absolute Auto 0.1 X10*3/uL (0.0-0.2); Basophils Percent Auto 0.8 % (0-2); Eosinophils Absolute Auto 0.1 X10*3/uL (0.0-0.4); Hematocrit 41.8 % (37.0-47.0); Hemoglobin 13.4 g/dl (12.0-16.0); Imm Gran Abs Auto 0.01 X10*3/uL (0.00-0.03); Imm Gran Pct Auto 0.1 % (0.0-0.4); Lymphocytes Absolute Auto 2.6 X10*3/uL (1.2-4.9); Mean Corpuscular HGB Conc 32.1 g/dl (31.0-35.0); Mean Corpuscular Hemoglobin 27.8 pg (27.0-33.0); Mean Corpuscular Volume 86.7 fL (80.0-98.0); Mean Platelet Volume 11.7 fL (9.4-12.3); Monocytes Absolute Auto 0.4 X10*3/uL (0.1-1.2); Monocytes Percent Auto 5.8 % (2-11); Neutrophils Absolute Auto 4.1 x10*3/uL (2.0-8.3); Neutrophils Percent Auto 56.3 % (45-73); Platelet Count 298 X10*3/uL (160-400); Red Blood Count 4.82 X10*6/uL (4.20-5.50); Red Cell Distribution Width 13.3 % (11.0-16.0); White Blood Count 7.2 X10*3/uL (4.8-10.8)
[2024-03-29 16:40] LABS: TSH reflex Free T4 0.52 uIU/mL (0.32-4.0)
[2024-03-30 09:00] LABS: HBS Num1 16.14 mIU/mL (0-7.99); HBsAGNum1 0.62 S/CO (0.00-0.99); HIV AB/AG Nonreactive (Nonreactive); HIV Num 1 0.12 S/CO (0.00-0.99); Hepatitis B Core Antibody Nonreactive (Nonreactive); Hepatitis B Surface Antigen Negative (Negative); ~Hepatitis B Surface Antibody REACTIVE (Nonreactive)
[2024-03-30 15:23] LABS: HCV Log PCR <1.18 NOT DETECTED Log IU/mL (NOT DETECTED); HepC Viral Load <15 NOT DETECTED IU/mL (NOT DETECTED)
[2024-03-31 06:43] LABS: RPR Rapid Plasma Reagin NON-REACTIVE (NON-REACTIVE)
== END 2024-03-29 13:29 | disposition home or self-care (01) ==
LOC: HO.HHCL 13:28
PROVIDERS: Visit Provider Registered Nurse
DX: Z00.00 Encounter for general adult medical examination without abnormal findings (principal)
CPT/HCPCS: 36415; 80053; 80061; 83036; 84443; 85025; 86592; 86704; 86706; 87340; 87389; 87522

== ENCOUNTER 2024-04-05 14:30 | Outpatient (REF) | payer MEDICAID, SELFPAY | END 2024-04-05 14:31 | disposition home or self-care (01) | LOC: HO.HHCL 14:30 | PROVIDERS: Visit Provider Registered Nurse | DX: R10.13 Epigastric pain (principal) | CPT/HCPCS: 87338 ==

== ENCOUNTER 2024-04-13 14:20 | Outpatient (REF) | payer MEDICAID, SELFPAY ==
--- NOTE | ~2024-04-13 | XR_ITS ---
EXAMINATION: XR FOOT, RIGHT CLINICAL INFORMATION: Right foot pain. Metatarsophalangeal swelling and bruising. Limited range of motion. COMPARISON: Right foot radiographs dated 03/05/2024. TECHNIQUE: AP, lateral, and oblique views of the right foot. FINDINGS: Redemonstration of a mildly displaced, oblique fracture through the medial base of the first proximal phalanx with the fracture gap measuring up to 0.2 cm. This contacts the periphery of the articular surface. No significant new bone/callus formation. No new fracture. No dislocation. No joint space narrowing or marginal osteophytes. No osseous erosion. No abnormal soft tissue calcification. XR/XR foot RT min 3V IMPRESSION: Mildly displaced, oblique fracture through the medial base of the first proximal phalanx which contacts the articular surface. No significant new bone/callus formation. Electronically signed by: Dominic Toth MD 04/19/2024 09:51 PM EDT
== END 2024-04-13 14:21 | disposition home or self-care (01) ==
LOC: HO.HHCX 14:20
PROVIDERS: Visit Provider Nurse Practitioner Family
DX: M79.671 Pain in right foot (principal)
CPT/HCPCS: 73630

== ENCOUNTER 2024-05-08 15:11 | Emergency (ER) | payer SELFPAY ==
--- NOTE | ~2024-05-08 | XR_ITS ---
EXAMINATION: XR FOOT, RIGHT CLINICAL INFORMATION: Pain, history of fracture. COMPARISON: Radiograph right foot 04/13/2024. TECHNIQUE: AP, lateral, and oblique views of the right foot. FINDINGS: Less distinct fracture line at the medial base of the first proximal phalanx suggesting healing. No interval fractures. No dislocation. No significant soft tissue abnormality. XR/XR foot RT min 3V IMPRESSION: Healing fracture at the base of the first proximal phalanx. Electronically signed by: Leda Cervantes MD 05/08/2024 04:23 PM EDT
[2024-05-08 15:17] VITALS: BP 111/69; PULSE 91; RESP 16; TEMP 36.8; O2SAT 96; BMI 28.2
--- NOTE | 2024-05-08 15:18 | ED_ITS ---
HPI - General Adult General Chief complaint: Extremity Injury, Lower Stated complaint: Small fracture, right big toe Time Seen by Provider: 05/08/24 15:56 Source: patient Mode of arrival: ambulatory Limitations: no limitations History of Present Illness ED Provider: Aurora RIVAS narrative: Patient is a 28-year-old female presenting to the emergency department with complaint of ongoing right great toe pain. States she was diagnosed with a right great toe fracture around 2 months ago at [facility], states was not provided with any type of splint or other devices at that time. She has purchased [id number] splints and states symptoms have slightly improved but she is still having pain. Denies any new weakness, numbness, tingling, change of color to her toe or foot. Reports was unable to follow-up with orthopedics due to that visit not being covered by insurance. MD complaint: toe pain Onset (ago): month(s) Treatments prior to arrival: other Related Data Previous Rx's ?Medication ?Instructions ?Recorded omeprazole magnesium 20 mg 20 mg PO BID #30 tabs 06/24/20 tablet,delayed release (Prilosec OTC) amoxicillin 875 mg-potassium 1 tab PO BID 7 days #14 tabs 08/18/22 clavulanate 125 mg tablet Allergies Allergy/AdvReac Type Severity Reaction Status Date / Time No Known Allergies Allergy Verified 05/08/24 15:18 Review of Systems Review of Systems: As per HPI. Yes all other systems are reviewed and are negative Constitutional: Constitutional: Reports as per HPI [facility] Past Medical History Medical History COVID-19 Social History Social History Alcohol intake: never Advance Directives: No Advance Directives Information Provided: No Physical Exam ED Vital Signs: Vital Signs - 24 hr 05/08/24 15:17 Temperature 98.3 F Pulse Rate 91 Respiratory Rate 16 Blood Pressure 111/69 Pulse Oximetry 96 Oxygen Delivery Method Room Air BMI result Body Mass Index 28.2 Vital signs have been reviewed and appear to be correct. Blood pressure normal. Heart rate normal. Respiratory rate normal. Temperature normal. Oxygen saturation normal. Const General: cooperative, healthy appearing and no acute distress Orientation/consciousness: oriented to person, oriented to place, oriented to time and patient oriented x3 Limitations: no limitations HENMT Head: Yes normocephalic and Yes atraumatic Ears: external ears normal General nose exam: Normal external nose present Face and sinus: Yes face symmetric Mouth: oropharynx normal and moist mucous membranes Throat: Yes uvula midline Eyes Pupils: Equal, round and reactive pupils present Neck Neck: Yes normal visual inspection and Yes supple Resp Effort & Inspection: normal respiratory effort and able to speak in complete sentences Auscultation: clear to auscultation bilaterally Cardio Rate: regular rate Rhythm: regular rhythm Heart sounds: S1 normal heart sound present and S2 normal heart sound present GI Palpation (GI): Soft to palpation and nontender Auscultation: normoactive bowel sounds General: Yes no CVA tenderness Back/Spine/Pelvis Back: no CVA tenderness Skin General skin exam: elasticity normal and turgor normal Neuro General: oriented to person, oriented to place, oriented to time, patient oriented x3, moves all extremities, no focal motor deficits and CN's II-XI intact bilaterally Cranial nerves: Yes Equal, round and reactive pupils present Cognition (Neuro): normal cognition Extrem General: Yes full ROM, Yes no pedal edema and Yes no calf tenderness Right lower extremity: foot Details: normal capillary refill, normal to inspection, tenderness Location: of the great toe Location: at the MTP joint and at the proximal phalanx, toes with normal ROM and vascular exam Details: dorsalis pedis pulse present and posterior tibial pulse present; no unusual warmth, no edema and no ecchymosis Psych Mental Status: mental status grossly normal Affect: normal affect Thought process: Normal thought process present Course Course Course Narrative: This is an RME: Additional HPI, ROS, PE not included below will be deferred to primary provider. RME assessment and note performed by: Caro Hull PA-C This is a [id number]-female who presents to the ER with complaints of ongoing right great toe pain x 2 months. Had a fracture and her right first proximal phalanx > unsure of mechanism but was at a green party. Reports that she has followed up with the [facility] walk in and reports that her insurance will not cover an orthopedic visit. No new injury or trauma. Plan: repeat xrays Medical Decision Making Medical Decision Making MDM Narrative: Patient is a 28-year-old female presenting to the emergency department with complaint of ongoing right great toe pain. On exam patient is awake, A+Ox3, VS WNL, afebrile, normal neurological exam without focal deficits, physical exam findings as above. Given reported symptoms and physical exam findings, initial differential includes impaired healing of fracture. Do not suspect septic joint/septic arthritis. X-ray notable for healing fracture proxmal phalanx right great toe. My interpretation is in agreement with the radiologist's interpretation. Results discussed with patient and all questions answered. Will provide patient with postop shoe to wear as needed for discomfort. Advised patient she can also continue to use [id number] splints she has purchase. Recommended elevation, ice, Tylenol ibuprofen. Will refer to orthopedic office here for ongoing symptoms. Return precautions discussed. Patient verbalized understanding of and agreement with plan. Differential Diagnosis Differential Diagnoses: The differential diagnosis associated with the presentation includes As per MDM. Independent Interpretation I performed an independent interpretation of an: Plain X-Ray Interpretation: X-ray notable for healing fracture proxmal phalanx right great toe. Radiology Impression Discussion of test interpretation with radiology: I have reviewed the radiologist's reading. Radiologist Impression: XR/XR foot RT min 3V IMPRESSION: Healing fracture at the base of the first proximal phalanx. External Record Review External record reviewed: Inpatient record, Office record and Outpatient record Discharge Plan Discharge Clinical Impression: Closed fracture of phalanx of right great toe Patient Disposition: Home, Self-Care Instructions: Toe Fracture (ED), Post Surgical Shoe (ED), R.I.C.E. Treatment (ED) Additional Instructions: You were evaluated in the emergency department today for right great toe pain after being diagnosed with a toe fracture previously. Your x-rays show a heali ng fracture of your great toe on your right foot. You were provided with a postop shoe in the emergency department today to provide support. We recommend that you wear this as needed. We recommend 650 mg of Tylenol or 600 mg of ibuprofen every 6 hours as needed for pain. Follow-up with orthopedics as needed. Return to the emergency department if you develop increasing pain, new redness, swelling, numbness and tingling or any other concerning symptoms. Prescriptions: No Action omeprazole magnesium [Prilosec OTC] 20 mg tablet,delayed release (DR/EC) 20 mg PO BID Qty: 30 0RF amoxicillin-pot clavulanate 875-125 mg tablet 1 tab PO BID 7 Days Qty: 14 0RF Referrals: [facility] – [place] [facility] [Provider Group] Print Language: Upper Sorbian
[2024-05-08 17:36] VITALS: BP 111/69; PULSE 91; RESP 16; TEMP 36.8; O2SAT 96
== END 2024-05-08 17:36 | disposition home or self-care (01) ==
PROVIDERS: Emergency Provider Emergency Medicine
DX: S92.411D Displaced fracture of proximal phalanx of right great toe, subsequent encounter for fracture with routine healing (principal); X58.XXXD Exposure to other specified factors, subsequent encounter; M79.674 Pain in right toe(s)
CPT/HCPCS: 73630; 99283

== ENCOUNTER 2025-02-21 17:25 | Outpatient (REF) | payer BC, SELFPAY ==
[2025-02-22 10:09] LABS: Bacterial Vaginosis PCR POSITIVE (Negative); Candida Group PCR DETECTED (Not Detect); Candida glab krusei PCR NOT DETECTED (Not Detect); Trichomonas vaginalis PCR NOT DETECTED (Not Detect)
[2025-02-22 10:26] LABS: CT PCR NOT DETECTED (Not Detect.); NG PCR NOT DETECTED (Not Detect.)
== END 2025-02-21 17:26 | disposition home or self-care (01) ==
LOC: HO.HHCLNP 17:25
PROVIDERS: Visit Provider Advanced Practice Midwife
DX: Z11.3 Encounter for screening for infections with a predominantly sexual mode of transmission (principal); Z11.51 Encounter for screening for human papillomavirus (HPV); N90.89 Other specified noninflammatory disorders of vulva and perineum
CPT/HCPCS: 81515; 87255; 87491; 87591

== ENCOUNTER 2025-02-25 13:51 | Outpatient (AMB) | payer BC, MEDICAID, SELFPAY ==
--- NOTE | 2025-02-25 13:55 | MHC.OFFVIS ---
Vital Signs 02/25/25 14:12 Height 5 ft 0.25 in Weight 169 lb 5.04 oz BMI 32.8 BP 126/72 Blood Pressure Location Lt brachial Position Sitting Pulse 96 Intake Visit Reasons: Rectal Bleeding External Hemorrhoids Intake Note: Patient is seen in office for rectal bleeding/external hermorrhoids. Pt c/o: bleeding in toilet paper, on and off, since last summer, straining, denies constipation, has gastritis/acid reflux [email or web address] Required: No Accompanied by: Self / Same As Patient Allergies No Known Allergies Allergy (Verified 02/25/25 14:10) HPI HPI Rectal Bleeding External Hemorrhoids: Details: [age] year old female referred for bleeding hemorrhoids. She says this has been noticing bright blood per rectum periodically with bowel movements. This has been going on for more than a year. She says that sometimes she also has some pain with bowel movements. She says that this has not sharp or severe . She denies being constipated. She also states that her hearing is not frequent at this time. [facility] Medical History Bleeding hemorrhoids COVID-19 Surgical History History of cosmetic plastic surgery Hx of section Social History Alcohol intake: current Alcohol intake frequency: holidays/special occasions only Patient Tobacco Use Status: Never used Tobacco Review of Systems Const Denies chills and Denies fever(s) Card Denies chest pain, Denies dyspnea and Denies dyspnea on exertion Resp Denies cough, Denies dyspnea and Denies dyspnea on exertion GI Reports hematochezia and Denies change in bowel habits Denies hematuria Musc Denies back pain and Denies limited range of motion Neuro Denies focal weakness and Denies convulsions Psych Denies depression and Denies mood swings Physical Exam Vital Signs: Last Vital Signs Pulse 96 02/25/25 14:12 BP 126/72 02/25/25 14:12 BMI result Body Mass Index 32.8 Const General: comfortable and no acute distress Orientation/consciousness: patient oriented x3 Neck Neck: Yes no lymphadenopathy Resp Auscultation: clear to auscultation bilaterally Cardio Rhythm: regular rhythm GI Palpation (GI): Soft to palpation, nontender and no guarding Neuro General: patient oriented x3 Office Procedures Anoscopy She was in kneeling hailey-knife position. The anoscope was gently inserted. A full examination of the anal canal was done. She would have a mixed internal external hemorrhoidal column which appeared to be anterior. This was moderate size. There were no other lesions. There was no fissure. There was no ulceration. There was no induration. There is no bleeding. [id number] Assessment & Plan Assessment & Plan (1) Bleeding hemorrhoids: Code(s): K64.9 - Unspecified hemorrhoids Category: Medical Plan: She does have a mixed moderate size internal external hemorrhoidal column. I did offer her the option of proceeding with hemorrhoidectomy. I explained the technique of this procedure. I reviewed the risks including but not limited to bleeding and infections, as well as the benefits and alternatives. I explained to her what to expect postoperatively She says she diarrhea does not want to go for hemorrhoidectomy at this time. She says she will come back to the office down the line if she feels that her symptoms are getting worse. Medications: Discontinued omeprazole magnesium (Prilosec OTC) Discontinued Reason: Patient Completed Course 20 mg PO BID 30 tabs 0RF amoxicillin-pot clavulanate 875-125 mg Discontinued Reason: Patient Completed Course 1 tab PO BID 7 days 14 tabs 0RF Coding Level of Care Code New Pt Level 3 (17385) Diagnoses Bleeding hemorrhoids K64.9 CPT Codes Details - CPT: 60097-Hjnyidlo ([id number])
[2025-02-25 14:12] VITALS: BP 126/72; PULSE 96; BMI 32.8
== END 2025-02-25 14:21 | disposition home or self-care (01) ==
LOC: HO.HGS 13:51
PROVIDERS: Visit Provider Surgery
DX: K64.9 Unspecified hemorrhoids (principal)
CPT/HCPCS: 46600; 99203

== ENCOUNTER → 2025-02-25 13:51 | Outpatient (BNVA) | payer BC, OTHER, SELFPAY | PROVIDERS: Visit Provider Surgery | DX: K64.9 Unspecified hemorrhoids (principal) | CPT/HCPCS: 46600 ==